=== PATIENT | male | born 1995 | race Caucasian/White ===

== ENCOUNTER 2017-01-11 15:35 | Emergency (ER) | payer BC ==
--- NOTE | 2017-01-11 15:54 | EDM.PDOC ---
ED HISTORY OF PRESENT ILLNESS - General Chief Complaint: Respiratory Problem Stated Complaint: SOB Time Seen by Provider: 01/11/17 15:53 - History of Present Illness INITIAL COMMENTS - FREE TEXT/NARRATIVE: 21-year-old male presents emergency room with palpitations upper extremity numbness rapid breathing. The patient was in a bar with a friend he hasn't developed all the symptoms. Patient has a history of anxiety but is never had problems quite this bad in the past. Patient denies any chest pain with this. Patient has no history of heart problems in the past however his father at age 50 of what sounds like a heart attack. - Related Data Allergies/ADRs: Allergies Allergy/AdvReac Type Severity Reaction Status Date / Time No Known Allergies Allergy Verified 01/11/17 16:42 Home Meds: Home Meds LORazepam [Ativan] 0.5 mg PO DAILY PRN #10 tablet 01/11/17 [Rx] Multivitamin with Minerals [Multiple Vitamin] 1 tab PO DAILY 01/11/17 [History] Past Medical History HEENT History: Reports: Other (see below) Other HEENT History: cyst off eye area as an Social & Family History - Tobacco Use Smoking Status *Q: Current Some Day Smoker Years of Tobacco use: 6 Packs/Tins Daily: 0.1 - Caffeine Use Caffeine Use: Reports: Coffee, Energy drinks, Tea - Recreational Drug Use Recreational Drug Use: No ED ROS GENERAL - Review of Systems Review Of Systems: See Below Constitutional: Denies: fever, chills HEENT: Reports: No symptoms Respiratory: Reports: Shortness of Breath (mild). Denies: Wheezing, Pleuritic Chest Pain, Cough, Sputum Cardiovascular: Denies: Chest pain GI/Abdominal: Reports: No symptoms Neurological: Reports: No Symptoms Psychiatric: Reports: Anxiety. Denies: Mood lability, Suicidal ideation ED EXAM, GENERAL - Physical Exam Exam: See Below Exam Limited By: No limitations General Appearance: alert, no apparent distress Head: atraumatic, normocephalic Neck: normal inspection, supple, non-tender, full range of motion. No: lymphadenopathy (L), lymphadenopathy (R) Respiratory/Chest: no respiratory distress, lungs clear, normal breath sounds, no accessory muscle use, chest non-tender Cardiovascular: regular rate, rhythm, no edema, no murmur, tachycardia (rate 120 ) GI/Abdominal: normal bowel sounds, soft, non tender, no organomegaly, no distention, no abnormal bruit, no mass Back Exam: normal inspection. No: CVA tenderness (L), CVA tenderness (R) Extremities: normal inspection, no pedal edema Course - Vital Signs Last Recorded V/S: Last Vital Signs Temp 37.8 C 01/11/17 15:45 Pulse 90 01/11/17 17:15 Resp 12 01/11/17 17:15 BP 132/90 01/11/17 17:15 Pulse Ox 98 01/11/17 17:15 - Orders/Labs/Meds Orders: Active Orders 24 hr Category Date Time Status EKG Documentation Completion [RC] STAT Care 01/11/17 16:02 Active Meds: Medications Discontinued Medications Generic Name Dose Route Start Last Admin Trade Name Freq PRN Reason Stop Dose Admin Lorazepam 0.5 mg 01/11/17 16:01 01/11/17 16:35 Ativan IVPUSH 01/11/17 16:02 0.5 mg ONETIME ONE Administration - Re-Assessments/Exams Free Text/Narrative Re-Assessment/Exam: 01/11/17 17:19 01/11/17 17:46 Patient's EKG shows a sinus tachycardia rate 1:30. After this he received Ativan 0.5 IV at this time the patient is symptom-free. However, he has a mild tachycardia rate approximately 110 but he feels much better he is in agreement to following up in the clinic early next week. The patient was questioned several times to confirm his willingness to followup in the clinic and he agrees. I am a little concerned with his persistent tachycardia suspect this is related to mild anxiety symptoms but this needs to be followed up and the patient understands this. He will be discharged with Ativan 0.5 to use one daily on an as-needed basis for anxiety. Departure - Departure Time of Disposition: 17:48 Disposition: Home, Self-Care 01 Clinical Impression: Anxiety Prescriptions: LORazepam [Ativan] 0.5 mg PO DAILY PRN #10 tablet PRN Reason: Anxiety Forms: ED Department Discharge Additional Instructions: Return to the emergency room with any questions or problems. Followup in the clinic early next week. [id number] You have been given Ativan use this once daily as needed for your anxiety. Allow 12 hours after using this medication before driving or returning to work. - My Orders Last 24 Hours: My Active Orders 01/11/17 16:02 EKG Documentation Completion [RC] STAT - Assessment/Plan Last 24 Hours: My Active Orders 01/11/17 16:02 EKG Documentation Completion [RC] STAT
[2017-01-11] MEDS ORDERED: LORazepam 2 MG/ML MDV IVPUSH ONE (16:01)
[2017-01-11 18:15] VITALS: BP 135/66
== END 2017-01-11 18:10 | disposition home or self-care (01) ==
LOC: JD.ED 15:35
DX: F41.9 Anxiety disorder, unspecified (principal); Z79.899 Other long term (current) drug therapy; F17.210 Nicotine dependence, cigarettes, uncomplicated
CPT/HCPCS: 93005; 96374; 99285; J2060; 99284